=== PATIENT | male | born 2000 | race Caucasian/White ===

== ENCOUNTER 2022-07-11 21:47 | Emergency (ER) | payer OTHER ==
[2022-07-11 22:01] VITALS: BP 121/73; PULSE 75; RESP 18; TEMP 98.2; BMI 25.1
[2022-07-11] MEDS ORDERED: IBUPROFEN 600 MG TABLET (FP) PO ONE ×2 (22:51→22:53)
[2022-07-11] MEDS ORDERED: CYCLOBENZAPRINE HCL 10 MG TABLET (FP) PO ONE (22:52)
[2022-07-11] MEDS ORDERED: CYCLOBENZAPRINE HCL 10 MG TABLET (FP) ONE (22:53)
== END 2022-07-11 23:52 | disposition home or self-care (01) ==
LOC: JERFT 21:47
DX: M25.561 Pain in right knee (principal); V49.9XXA Car occupant (driver) (passenger) injured in unspecified traffic accident, initial encounter
CPT/HCPCS: 73560-TC-LT-FY; 99283-25

== ENCOUNTER 2022-10-29 17:42 | Emergency (ER) | payer OTHER ==
[2022-10-29 17:47] VITALS: BP 118/59; PULSE 73; RESP 20; TEMP 98.6; BMI 25.1
[2022-10-29] MEDS ORDERED: IBUPROFEN 400 MG TABLET (FP) PO ONE ×2 (18:15→18:20)
== END 2022-10-29 19:06 | disposition home or self-care (01) ==
LOC: JERFT 17:42
DX: R07.89 Other chest pain (principal)
CPT/HCPCS: 71046-TC-FY; 93005; 93010; 99284-25

== ENCOUNTER 2025-02-01 06:19 | Day surgery (SDC) | payer BC ==
[2025-01-27 16:20] VITALS: BMI 26.9
[2025-02-01] MEDS ORDERED: BUPIVACAINE HCL/PF 0.25% (2.5MG/ML) 10 ML VIAL ONE (08:16)
[2025-02-01] MEDS ORDERED: DEXAMETHASONE SOD PHOSPHATE 4 MG/1 ML VIAL ONE (08:56)
[2025-02-01] MEDS ORDERED: ONDANSETRON 4 MG/2 ML VIAL ONE (08:56)
[2025-02-01] MEDS ORDERED: MIDAZOLAM HCL 2 MG/2 ML SINGLE DOSE VIAL ONE (08:56)
[2025-02-01] MEDS ORDERED: PROPOFOL 20 ML ONE (08:56)
[2025-02-01] MEDS ORDERED: ONDANSETRON 4 MG/2 ML VIAL IVPUSH PRN (09:05)
[2025-02-01] MEDS ORDERED: LACTATED RINGERS SOLUTION 1,000 ML IV SCH (09:15)
[2025-02-01] MEDS: BUPIVACAINE HCL/PF 0.25% (2.5MG/ML) 10 ML VIAL IJ ONE ×2 (09:25→09:54)
[2025-02-01] MEDS ORDERED: ACETAMINOPHEN INJECTION 100 ML ONE (09:31)
[2025-02-01] MEDS: BACITRACIN ZINC 15 GM TUBE TOPICAL OINTMENT TP ONE (09:56)
[2025-02-01 13:02] VITALS: RESP 20; TEMP 98.4
[2025-02-01 13:39] VITALS: BP 128/58; PULSE 80
== END 2025-02-01 13:42 | disposition home or self-care (01) ==
LOC: JASU-SURG 06:19
PROVIDERS: ATTEND Urology
PROC: 0VTTXZZ Resection of Prepuce, External Approach (ICD-10-PCS; principal; 2025-02-01 08:30)
DX: N47.1 Phimosis (principal)
CPT/HCPCS: 88304-TC; 94760